=== PATIENT | male | born 1965 | race Caucasian/White ===

== ENCOUNTER → 2016-09-10 | Outpatient (CLI) | payer BC ==
--- NOTE | ~2016-09-10 | MR113 ---
[facility] A Service of [facility] & [facility] RADIOLOGY TEXT RESULTS PATIENT: ERIC ROMANO LOCATION: [facility] : 63 UNIT #: [id number] AGE: [address]: Franklin Monroe MD SEX: M ORDER DR: [id number] [facility] [address] [place], [place] [address] [id number] O MR#: [id number] Acc #: [id number] NAME: ERIC ROMANO : 1965 SEX: M STUDY DATE/TIME: 09/10/2016 15:55 UNIT: [facility] ROOM: STUDY DESCRIPTION: MR Lumbar Wo Contrast Attending Physician: Franklin Monroe M.D. Referring Physician: Franklin Monroe M.D. Ordering Physician: Franklin Monroe M.D. Primary Care Physician: Franklin Monroe M.D. MRI CENTER REPORT This report is preliminary unless electronic signature is present. EXAM MRI of the lumbar spine without contrast performed on 09/10/2016. HISTORY 51-year-old male with right leg numbness and low back pain x1 week but no known injury. TECHNIQUE Sagittal and axial T1, sagittal and axial T2, sagittal STIR images were obtained through the lumbar spine. FINDINGS The vertebral bodies demonstrate normal height and alignment. There is a hemangioma seen at the L1 vertebral body level, just to the left of midline. The intervertebral discs are normal in height and signal, except at the L5-S1 level where there is decreased T2 signal present and some mild narrowing. A diffuse disc bulge is seen, which flattens the anterior thecal sac but does not appear to impinge on a nerve root. Conus medullaris terminates at the T12-L1 level without any enlargement or abnormal signal. IMPRESSION Disc bulge at the L5-S1 level with degenerative disc signal changes but no obvious herniation or nerve root impingement. Dictated by... Antony Pritchett M.D. THIS IS AN ELECTRONICALLY VERIFIED REPORT Antony Pritchett M.D. at 09/11/2016 5:16 PM RP/psc [facility] A Service of [facility] RADIOLOGY TEXT RESULTS PATIENT: ERIC ROMANO [facility] UNIT #: [id number] AGE: [address]: Franklin Monroe MD SEX: M ORDER DR: TD: 09/11/2016 00:35 JOB #: [id number] MRI CENTER REPORT COPY
== END | disposition home or self-care (01) ==
LOC: CMRI 14:24
DX: R20.0 Anesthesia of skin (principal); M51.37 Other intervertebral disc degeneration, lumbosacral region; M51.87 Other intervertebral disc disorders, lumbosacral region
CPT/HCPCS: 72148